=== PATIENT | female | born 1990 | race Caucasian/White ===

== ENCOUNTER 2017-02-09 12:00 | Emergency (ER) | payer SELFPAY ==
[~2017-02-09] VITALS: Ht 160 cm; Wt 44.0 kg
[~2017-02-09 12:00] MED LIST: HYDR-971 PO; IBUP400T PO; ONDA4TAB10 PO
[2017-02-09] MEDS ORDERED: IV NORMAL SALINE 1,000ML 1,000 ML IV SCH ×2 (12:23→16:00)
[2017-02-09] MEDS ORDERED: PROMETHAZINE 25 MG/ML VIAL IV ONE (12:36)
[2017-02-09] MEDS ORDERED: IV NORMAL SALINE 50ML 50 ML ONE (12:37)
[2017-02-09] MEDS: FENTANYL PF 100 MCG/2 ML VIAL. IV PRN ×3 (12:45→15:35)
[2017-02-09 12:58] LABS: BASO % 0 % (0-3); EOS % 0 % (0-3); HEMATOCRIT 40.9 % (36.0-47.0); HEMOGLOBIN 13.4 g/dL (12.0-15.5); LYMPH # 1.6 x10^3/uL (1.0-4.8); LYMPH % 12 % (24-48); MEAN CORPUSCULAR HEMOGLOBIN 27 pg (25-35); MEAN CORPUSCULAR HGB CONC 33 g/dL (31-37); MEAN CORPUSCULAR VOLUME 83 fL (79-100); MONO # 0.6 x10^3/uL (0.0-1.1); MONO % 4 % (0-9); NEUT # 11.1 x10^3uL (1.8-7.7); NEUT % 83 % (31-73); PLATELET COUNT 382 x10^3/uL (140-400); RED BLOOD COUNT 4.93 x10^6/uL (3.50-5.40); RED CELL DISTRIBUTION WIDTH 14.6 % (11.5-14.5); WHITE BLOOD COUNT 13.3 x10^3/uL (4.0-11.0)
[2017-02-09] MEDS ORDERED: LIDO:MAALOX 1:1 20 ML SINGLE DOSE PO ONE (13:00)
[2017-02-09] MEDS ORDERED: ONDANSETRON PF 4 MG/2 ML VIAL. IV ONE (13:00)
[2017-02-09] MEDS ORDERED: FAMOTIDINE 20 MG/2 ML VIAL IVP ONE (13:00)
[2017-02-09] MEDS ORDERED: PROMETHAZINE 25 MG in IV NORMAL SALINE 50ML 50 ML IV PRN (13:00)
[2017-02-09 13:04] LABS: PREG TEST PT QUAL NEGATIVE (NEG)
[2017-02-09 13:05] LABS: ALBUMIN 4.8 g/dL (3.4-5.0); ALBUMIN/GLOBULIN RATIO 1.3 (1.0-1.7); CALCIUM 9.8 mg/dL (8.5-10.1); CREATININE 0.9 mg/dL (0.6-1.0); GFR 76.3; POTASSIUM 3.6 mmol/L (3.5-5.1); TOTAL PROTEIN 8.6 g/dL (6.4-8.2)
[2017-02-09] MEDS ORDERED: IOHEXOL 300 MG/ML 75 ML VIAL. IV ONE (13:40)
--- NOTE | 2017-02-09 13:41 | RAD ---
Indication left lower quadrant pain since yesterday. Axial images through the abdomen and pelvis were obtained. 75 cc of Omnipaque 300 was administered intravenously. Note is made of a previous examination November 04, 2014. The lung bases are clear. There is a low-density mass in the left lobe of the liver. It is larger than on the previous exam. (Previously measuring approximately 1 mm in greatest dimension and now 5-6). In a 27-year-old without a significant health history this almost certainly reflects benign disease. Clinical correlation as to the likelihood of hepatic disease advised. The spleen appears unremarkable. The gallbladder is largely contracted but grossly normal. No pancreatic adrenal or renal anomalies are seen. An acute or definite significant finding in the abdomen is not seen. In the pelvis there are adnexal masses likely reflecting physiologic cysts associated with the ovaries. If clinically warranted additional evaluation could be obtained with ultrasound. Acute or definite significant finding is not seen. The large bowel is largely collapsed. Slight large bowel wall thickening not entirely excluded but the appearance is probably secondary to the contracted state. Mild colitis cannot entirely excluded IMPRESSION: No definite acute or significant finding in the abdomen or pelvis. Probable cyst in the left lobe of the liver. The mass is, however, larger than on the previous exam. Probable physiologic cysts associated with the ovaries. Large bowel is largely collapsed. See above discussion.
--- NOTE | 2017-02-09 13:45 | PHYS DOC ---
General Chief Complaint: NAUSEA/VOMITING/DIARRHEA Stated Complaint: N/V/D,ABD PAIN Time Seen by MD: 12:23 Source: patient Exam Limitations: no limitations Problems: History of Present Illness Initial Comments Pt is 27/F to ED c/o abdominal pain, n/v/d. Pt states that she's had intermittent abdominal cramping, n/v/d since late last evening. No travel/bad food/known sick contacts, abdominal discomfort is generalized no blood noted. Pain is sharp/crampy, moderate/severe, no known exacerbating factors but relief typical after emesis or loose stool. No measured fever, no trauma or prearrival treatment. Denies , appetite preserved but fearful of PO intake due to n/v. 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 Requests evaluation here as she thinks today's sx may be related. Accompanied by SO. ED VS: 98.1, 66, 20, 141/76, 100% RA Timing/Duration: 24 hours, intermittent Severity: severe Modifying Factors: worse with eating Associated Symptoms: malaise, nausea/vomiting, weakness, other Allergies: Coded Allergies: No Known Allergies (Unverified Allergy, Unknown, 11/04/14) Past Medical History Medical History: no pertinent history Surgical History: noncontributory (CS) Social History Smoker: cigarettes Alcohol: occasionally Drugs: marijuana Review of Systems Constitutional: see HPI Respiratory: denies cough, denies shortness of breath Cardiovascular: denies chest pain, denies palpitations Gastrointestinal: see HPI Genitourinary: denies dysuria, denies frequency, denies hematuria Musculoskeletal: denies back pain, denies joint swelling, denies neck pain Psychiatric/Neurological: denies headache, denies numbness, denies paresthesia Physical Exam General Appearance: moderate distress, thin (small amt green emesis, dry heaves ) Eyes: bilateral eye EOMI, bilateral eye PERRL, bilateral eye normal inspection Ear, Nose, Throat: hearing grossly normal, normal ENT inspection (mucus membranes very dry), normal pharynx Neck: non-tender, supple Respiratory: normal breath sounds, no respiratory distress Cardiovascular: normal peripheral pulses, regular rate, rhythm Gastrointestinal: soft (ND, BS normal, diffuse TTP no focality, neg mcburney/ sanchez no masses or organomegaly noted) Rectal: deferred Back: no CVA tenderness, no vertebral tenderness Extremities: non-tender, normal inspection Neurologic/Psychiatric: supervisor photocomposition II-XII nml as tested, no motor/sensory deficits, alert, normal mood/affect, oriented x 3 Skin: pallor (poor turgor) Orders, Labs, Meds PATIENT: VALENCIA PRIETO ACCOUNT: [id number] : 1990 LOCATION: ER AGE: 27 SEX: F EXAM STATUS: PRE ER ORD. PHYSICIAN: MYNOR BENÍTEZ DO REASON: LLQ/adnexal pain, n/v/d PROCEDURE: CT ABD PELV W/ IV CONTRST ONLY Indication left lower quadrant pain since yesterday. Axial images through the abdomen and pelvis were obtained. 75 cc of Omnipaque 300 was administered intravenously. Note is made of a previous examination November 04, 2014. The lung bases are clear. There is a low-density mass in the left lobe of the liver. It is larger than on the previous exam. (Previously measuring approximately 1 mm in greatest dimension and now 5-6). In a 27-year-old without a significant health history this almost certainly reflects benign disease. Clinical correlation as to the likelihood of hepatic disease advised. The spleen appears unremarkable. The gallbladder is largely contracted but grossly normal. No pancreatic adrenal or renal anomalies are seen. An acute or definite significant finding in the abdomen is not seen. In the pelvis there are adnexal masses likely reflecting physiologic cysts associated with the ovaries. If clinically warranted additional evaluation could be obtained with ultrasound. Acute or definite significant finding is not seen. The large bowel is largely collapsed. Slight large bowel wall thickening not entirely excluded but the appearance is probably secondary to the contracted state. Mild colitis cannot entirely excluded IMPRESSION: No definite acute or significant finding in the abdomen or pelvis. Probable cyst in the left lobe of the liver. The mass is, however, larger than on the previous exam. Probable physiologic cysts associated with the ovaries. Large bowel is largely collapsed. See above discussion. DICTATED AND SIGNED BY: YANELY CUNNINGHAM MD DATE: 02/09/17 1326 CC: ALEXI MAGANA MD; MYNOR BENÍTEZ DO ~ WBC 13.1, glu 145, HCG neg, UDS + cannabinoids. Pt with prolonged ED course in part due to ED volume, also due to CT delay and IV fluids. Pt had several episodes of emesis/retching thru ED course. She received 2+ L NS IV, fentanyl/pepcid/GI cocktail for discomfort with good control. Zofran initially for n/v, ultimately requiring phenergan/haldol. I discussed her symptoms, PE findings, and results obtained in ED. No evidence obstruction or other acute emergent condition, viral gastroenteritis most likely etiology although cannabinoid-induced cyclic vomitting syndrome also on differential. I discussed treatment options, pt will try symptomatic treatment at home initially. She expressed agreement/understanding of treatment plan. Pt advised to stop smoking. Departure Time of Disposition: 15:01 Disposition: 01 HOME, SELF-CARE Diagnosis: colitis, hypovolemia, hepatic cyst Patient Instructions: Colitis, Dehydration, Adult, Vesp-ps-Ieja, Smoking Cessation Additional Instructions: Stop smoking, seek medical assistance if necessary. Clear liquids today, advance to bland diet tomorrow as tolerated. Aggressive hydration with gatorade, water. Rx: cipro, zofran odt, dicyclomine, norco 5mg #20 Take medications with food. Follow up with your doctor next week for recheck and to schedule future imaging to monitor liver cyst. Return to ED with new or changing symptoms. MYNOR BENÍTEZ DO Feb 09, 2017 13:45
[2017-02-09 14:35] LABS: AMPHETAMINE/METHAMPHETAMINE NEG (NEG); BARBITURATES NEG (NEG); BENZODIAZEPINES NEG (NEG); CANNABINOIDS POS (NEG); COCAINE NEG (NEG); METHADONE NEG (NEG); OPIATES NEG (NEG); PHENCYCLIDINE NEG (NEG)
[2017-02-09 14:37] LABS: BACTERIA,URINE 0 /HPF (0-FEW); BILIRUBIN,URINE NEG (NEG); CLARITY,URINE CLEAR; COLOR,URINE YELLOW; GLUCOSE,URINE NEG (NEG); NITRITE,URINE NEG (NEG); RBC,URINE RARE /HPF (0-2); SQUAMOUS EPITHELIAL CELL,UR MOD /LPF; UROBILINOGEN,URINE 0.2 mg/dL (0.2 mg/dL); WBC,URINE RARE /HPF (0-4)
[2017-02-09] MEDS ORDERED: CIPR500T94 PO (15:08)
[2017-02-09] MEDS ORDERED: ONDA4TAB10 PO (15:08)
[2017-02-09] MEDS ORDERED: DICY20TA3 PO (15:08)
[2017-02-09] MEDS ORDERED: HYDR-971 PO (15:08)
[2017-02-09] MEDS ORDERED: HALOPERIDOL LACT 5 MG/ML VIAL. IVP ONE (15:30)
[2017-02-09] MEDS ORDERED: PROMETHAZINE IM 25 MG/ML VIAL IM ONE (15:30)
[2017-02-09 15:40] VITALS: BP 122/74
== END 2017-02-09 17:10 | disposition home or self-care (01) ==
LOC: ER 12:00
DX: K52.9 Noninfective gastroenteritis and colitis, unspecified (principal); E86.1 Hypovolemia; K76.89 Other specified diseases of liver; F17.210 Nicotine dependence, cigarettes, uncomplicated; F12.10 Cannabis abuse, uncomplicated
CPT/HCPCS: 36415; 74177; 80053; 80305; 80320; 81001; 83690; 84703; 85027; 96361; 96365; 96372; 96375; 96376; 99285; J1630; J2405; J2550; J3010; Q9967; S0028; G0480; G0481; J7030

== ENCOUNTER 2017-02-26 15:38 | Emergency (ER) | payer SELFPAY ==
[~2017-02-26] VITALS: Ht 160 cm; Wt 45.8 kg
[~2017-02-26 15:38] MED LIST changes: +CIPR500T94 PO; +DICY20TA3 PO; -IBUP400T PO; +IBUP400T18 PO
[2017-02-26] MEDS ORDERED: IV NORMAL SALINE 1,000ML 1,000 ML IV ONE (16:30)
[2017-02-26] MEDS ORDERED: fentaNYL PF 100 MCG/2 ML VIAL IM ONE (16:30)
[2017-02-26] MEDS ORDERED: ONDANSETRON PF 4 MG/2 ML VIAL. IV ONE ×2 (16:30→20:15)
[2017-02-26 17:05] LABS: BASO % 0 % (0-3); EOS # 0.5 x10^3/uL (0.0-0.7); EOS % 6 % (0-3); HEMATOCRIT 40.8 % (36.0-47.0); HEMOGLOBIN 13.4 g/dL (12.0-15.5); LYMPH # 2.1 x10^3/uL (1.0-4.8); LYMPH % 25 % (24-48); MEAN CORPUSCULAR HEMOGLOBIN 27 pg (25-35); MEAN CORPUSCULAR HGB CONC 33 g/dL (31-37); MEAN CORPUSCULAR VOLUME 83 fL (79-100); MONO # 0.7 x10^3/uL (0.0-1.1); MONO % 9 % (0-9); NEUT # 5.2 x10^3uL (1.8-7.7); NEUT % 61 % (31-73); PLATELET COUNT 295 x10^3/uL (140-400); RED CELL DISTRIBUTION WIDTH 15.1 % (11.5-14.5); WHITE BLOOD COUNT 8.6 x10^3/uL (4.0-11.0)
[2017-02-26] MEDS ORDERED: IOHEXOL 300 MG/ML 75 ML VIAL. IV ONE (17:10)
[2017-02-26 17:19] LABS: ALBUMIN 4.2 g/dL (3.4-5.0); ALBUMIN/GLOBULIN RATIO 1.1 (1.0-1.7); CALCIUM 9.6 mg/dL (8.5-10.1); CREATININE 0.8 mg/dL (0.6-1.0); GFR 87.4; POTASSIUM 3.6 mmol/L (3.5-5.1); TOTAL BILIRUBIN 0.5 mg/dL (0.2-1.0); TOTAL PROTEIN 8.2 g/dL (6.4-8.2)
--- NOTE | 2017-02-26 17:54 | RAD ---
PROCEDURE CT abdomen and pelvis with contrast HISTORY Vomiting, abdominal pain, pelvic pain, fever, diarrhea TECHNIQUE Exposure: One or more of the following individualized dose reduction techniques were utilized for this exam: 1. Automated exposure control. 2. Adjustment of the mA and/or kV according to patient size. 3. Use of iterative reconstruction technique. Helical CT imaging abdomen and pelvis with 75 milliliters Omnipaque [address] abdomen and pelvis February 09, 2017 FINDINGS Abdomen: Nonspecific 5 millimeter hypodense lesion segment for the liver is stable. There is mild dilation of the extrahepatic bile ducts and central intrahepatic bile ducts a change from the prior study. Gallbladder is also mildly distended the could be a thin slip of fluid or edema at the gallbladder fossa. Pancreas, spleen, adrenals and kidneys are unremarkable. Collapse of the small bowel and ascending and transverse colon no discrete obstruction or inflammatory change. The appendix is negative. No abdominal fluid or adenopathy. Lung bases and bones are unremarkable. Pelvis: Mild dependent pelvic free fluid. Subcentimeter hypodensities of the ovaries likely follicles. Uterus, bladder, rectum and bones are unremarkable. IMPRESSION 1. Mild dilation of the bile ducts. Mild distention of the gallbladder and a thin slip of fluid or edema at the gallbladder fossa. These findings are new from prior imaging and could be indicative choledocholithiasis or cholecystitis. 2. The appendix is negative. 3. Mild dependent pelvic free fluid. Electronically signed by: Ji Nolen MD (February 26, 2017 17:53:09)
--- NOTE | 2017-02-26 18:27 | ED.ADGEN ---
Past History Past Medical History: No Pertinent History Past Surgical History: No Surgical History, Alcohol Use: Occasionally Drug Use: Marijuana Adult General Chief Complaint Chief Complaint abdominal pain with severe vomiting since AM, +BM but no diarrhea, +F/C HPI HPI Patient is a 27 year old F who presents with abdominal pain, and vomiting since this AM, Had [employer]son last night. Pt admits to problems at times with constipation but has had 3 BM in ER no diarrhea. Pt states she has had abdominal pain problems on and off sometimes related to food +F/C no chest pain, mild cough, no blood in vomit, no blood in stool, no dysuria Review of Systems Review of Systems Constitutional: + fever or chills Eyes: Denies change in visual acuity, redness, or eye pain HENT: Denies nasal congestion or sore throat [] Respiratory: shortness of breath + cough no sputum Cardiovascular: No additional information not addressed in HPI GI: abdominal pain, N/V : Denies dysuria or hematuria Musculoskeletal: Denies back pain or joint pain Integument: Denies rash or skin lesions Neurologic: Denies headache, focal weakness or sensory changes Current Medications Current Medications Current Medications Medications (Trade) Dose Ordered Sig/Alon Start Time Stop Time Status Last Admin Dose Admin Fentanyl Citrate (Fentanyl 2ml Vial) 50 mcg 1X ONCE 02/26/17 16:30 02/26/17 16:31 DC 02/26/17 16:30 50 MCG Iohexol (Omnipaque 300 Mg/ml) 75 ml 1X ONCE 02/26/17 17:10 02/26/17 17:11 DC Ondansetron HCl (Zofran) 4 mg 1X ONCE 02/26/17 16:30 02/26/17 16:31 DC 02/26/17 16:39 4 MG Sodium Chloride 1,000 ml @ 1,000 mls/hr 1X ONCE 02/26/17 16:30 02/26/17 17:29 DC 02/26/17 16:38 1,000 MLS/HR Allergies Allergies Allergies Coded Allergies Type Severity Reaction Last Updated Verified No Known Allergies Allergy Unknown 02/26/17 No Physical Exam Physical Exam Constitutional: Well developed, actively vomiting HENT: Normocephalic, atraumatic, bilateral external ears normal, oropharynx moist, no oral exudates, nose normal. [] Eyes: PERRLA, EOMI, conjunctiva normal, no discharge. [] Neck: Normal range of motion, no tenderness, supple, no stridor. [] Cardiovascular:Heart rate regular rhythm, no murmur [] Lungs & Thorax: Bilateral breath sounds clear to auscultation [] Abdomen: hypoactive BS soft, mod/severe RUQ tenderness, voluntary guarding, no rebound Skin: Warm, dry, no erythema, no rash. Back: No tenderness, no CVA tenderness. [] Extremities: No tenderness, no cyanosis, no clubbing, ROM intact, no edema. [] Neurologic: Alert and oriented X 3, normal motor function, normal sensory function, no focal deficits noted. [] Psychologic: Affect normal, judgement normal, mood normal. [] Current Patient Data Vital Signs Vital Signs Date Time Temp Pulse Resp B/P (MAP) Pulse Ox O2 Delivery O2 Flow Rate FiO2 02/26/17 15:40 98.1 87 22 95 Room Air Lab Results Laboratory Tests Test 02/26/17 16:45 White Blood Count 8.6 x10^3/uL (4.0-11.0) Red Blood Count 4.90 x10^6/uL (3.50-5.40) Hemoglobin 13.4 g/dL (12.0-15.5) Hematocrit 40.8 % (36.0-47.0) Mean Corpuscular Volume 83 fL (79-100) Mean Corpuscular Hemoglobin 27 pg (25-35) Mean Corpuscular Hemoglobin Concent 33 g/dL (31-37) Red Cell Distribution Width 15.1 % (11.5-14.5) H Platelet Count 295 x10^3/uL (140-400) Neutrophils (%) (Auto) 61 % (31-73) Lymphocytes (%) (Auto) 25 % (24-48) Monocytes (%) (Auto) 9 % (0-9) Eosinophils (%) (Auto) 6 % (0-3) H Basophils (%) (Auto) 0 % (0-3) Neutrophils # (Auto) 5.2 x10^3uL (1.8-7.7) Lymphocytes # (Auto) 2.1 x10^3/uL (1.0-4.8) Monocytes # (Auto) 0.7 x10^3/uL (0.0-1.1) Eosinophils # (Auto) 0.5 x10^3/uL (0.0-0.7) Basophils # (Auto) 0.0 x10^3/uL (0.0-0.2) Maternal Serum HCG Beta Subunit < 1 mIU/mL (0-6) Sodium Level 140 mmol/L (136-145) Potassium Level 3.6 mmol/L (3.5-5.1) Chloride Level 103 mmol/L (98-107) Carbon Dioxide Level 26 mmol/L (21-32) Anion Gap 11 (6-14) Blood Urea Nitrogen 7 mg/dL (7-20) Creatinine 0.8 mg/dL (0.6-1.0) Estimated GFR (Cockcroft-Gault) 87.4 BUN/Creatinine Ratio 9 (6-20) Glucose Level 119 mg/dL (70-99) H Calcium Level 9.6 mg/dL (8.5-10.1) Total Bilirubin 0.5 mg/dL (0.2-1.0) Aspartate Amino Transferase (AST) 27 U/L (15-37) Alanine Aminotransferase (ALT) 26 U/L (14-59) Alkaline Phosphatase 68 U/L (46-116) Total Protein 8.2 g/dL (6.4-8.2) Albumin 4.2 g/dL (3.4-5.0) Albumin/Globulin Ratio 1.1 (1.0-1.7) Lipase 82 U/L (73-393) EKG EKG [] Radiology/Procedures Radiology/Procedures [ [place] [address] IMAGING REPORT Signed PATIENT: VALENCIA PRIETO ACCOUNT: [id number] : 1990 LOCATION: ER AGE: 27 SEX: F EXAM STATUS: REG ER ORD. PHYSICIAN: MARAL BOSWELL MD REASON: abdominal pain PROCEDURE: CT ABD PELV W/ IV CONTRST ONLY PROCEDURE CT abdomen and pelvis with contrast HISTORY Vomiting, abdominal pain, pelvic pain, fever, diarrhea TECHNIQUE Exposure: One or more of the following individualized dose reduction techniques were utilized for this exam: 1. Automated exposure control. 2. Adjustment of the mA and/or kV according to patient size. 3. Use of iterative reconstruction technique. Helical CT imaging abdomen and pelvis with 75 milliliters Omnipaque [address] abdomen and pelvis February 09, 2017 FINDINGS Abdomen: Nonspecific 5 millimeter hypodense lesion segment for the liver is stable. There is mild dilation of the extrahepatic bile ducts and central intrahepatic bile ducts a change from the prior study. Gallbladder is also mildly distended the could be a thin slip of fluid or edema at the gallbladder fossa. Pancreas, spleen, adrenals and kidneys are unremarkable. Collapse of the small bowel and ascending and transverse colon no discrete obstruction or inflammatory change. The appendix is negative. No abdominal fluid or adenopathy. Lung bases and bones are unremarkable. Pelvis: Mild dependent pelvic free fluid. Subcentimeter hypodensities of the ovaries likely follicles. Uterus, bladder, rectum and bones are unremarkable. IMPRESSION 1. Mild dilation of the bile ducts. Mild distention of the gallbladder and a thin slip of fluid or edema at the gallbladder fossa. These findings are new from prior imaging and could be indicative choledocholithiasis or cholecystitis. 2. The appendix is negative. 3. Mild dependent pelvic free fluid. Electronically signed by: Debra Nolen MD (February 26, 2017 17:53:09) DICTATED AND SIGNED BY: DEBRA NOLEN MD DATE: 02/26/17 1757 CC: ALEXI MAGANA MD; MARAL BOSWELL MD ~ ] Course & Med Decision Making Course & Med Decision Making Pertinent Labs and Imaging studies reviewed. (See chart for details) Pt less vomiting and feel better but on reassessment Increased pain. Abdomen +BS soft severe RUQ tenderness Will admit for pain control and IV hydration Called Dr. Queen surgeon and aware Called Dr. Paul internal medicine to admit Final Impression Final Impression Abdominal Pain Possible Cholecystitis [] Problems: Dragon Disclaimer Dragon Disclaimer This electronic medical record was generated, in whole or in part, using a voice recognition dictation system. MARAL BOSWELL MD February 26, 2017 18:27
--- NOTE | 2017-02-26 18:59 | ACF ---
Admission Criteria Forms ABDOMINAL PAIN Clinical Indications for Admission to Inpatient Care (Place 'X' for any and all applicable criteria): Admission is indicated for ANY ONE of the following(1)(2)(3)(4)(5): [X]I. Inpatient admission required rather than observation care (Also use Abdominal Pain: Observation Care, as appropriate) because of ANY ONE of the following: [ ]a) Severe pain requiring acute inpatient management [X]b) Identification of etiology/finding that requires inpatient care (eg, aortic dissection, free air) [ ]c) Absent bowel sounds with complete ileus(6) [ ]d) Suspected toxic megacolon [ ]e) Severe electrolyte abnormalities requiring inpatient care [ ]f) High fever or infection requiring inpatient admission as indicated by ANY ONE of following(7)(8): [ ] i) Appropriate outpatient or observational care antimicrobial treatment unavailable, not effective, or not feasible [ ] ii) Documented bacteremia [ ] iii) Temperature > 104.9 degrees F (oral) [ ] iv) T >103.1 F (oral) or < 96.8 F(rectal) that does not respond to all emergency treatment measures [ ]g) Signs of intestinal obstruction [B] [ ]h) Hemodynamic instability [ ]i) IV fluid to replace significant ongoing losses (greater than 3 L/m2 per day) (12)(13) [ ]j) Percutaneous or open drainage (eg, abscess, biliary tract ) procedures [ ]k) Parenteral nutrition regimen that must be implemented on inpatient basis [ ]l) Other condition,treatment or monitoring requiring inpatient admission. [ ]II. Peritoneal signs present [ ]III. Surgery needed that cannot be performed on an ambulatory basis. [ ]IV. Evaluation requires patient to not eat or drink for extended period ( eg, more than 24 hours). [ ]V. Contraindications and/or Inappropriate clinical situations for Observational Care in patients with abdominal pain, when ANY ONE of the following is required: [ ]a) Thorough evaluation is required to prevent catastrophic events due to delays in diagnosing (e.g.Mesenteric ischemia) 1,3 [ ]b) Patient with severe pathology or with chronic symptoms unlikely to improve in the ED stay (3) [ ]. General contraindications and/or Inappropriate clinical situations for Observational Care in patients with abdominal pain, when ANY ONE of the following is required: [ ]a) Prediction of prolongation of LOS based on ANY ONE of the following may be considered as a contraindication for observational care 2, 3, 4, 5, 6, 7, 8, 9, 10, 11 [ ]i) Age > 65 yrs. [ ]ii) Patient arriving by ambulance [ ]iii) Patient with high acuity [ ]iv) Patient requiring vital sign monitoring [ ]v) Patient on IV medication [ ]b) Systolic blood pressures 180mmHg 3,12 [ ]c) Patient with altered mental status including delirium and other alteration of consciousness, (3) [ ]d) Patient whose discharge disposition will be to a fdc home or rehabilitation home should not be managed in Emergency Department Observation Unit. CMS rule requires 3 days hospital stay before such placement.3,13 [ ]e) Patient with failure to thrive due to broad array of etiologies 3,16,17 [ ]f) Inability to ambulate 3,14 Extended stay beyond goal length of stay may be needed for(2)(3): [ ]a) Persistent abdominal pain with suspected intra-abdominal process [ ]b) Diagnosed condition requiring continued stay (e.g., pancreatitis, complicated diverticulitis) [ ]c) Surgery (e.g., colectomy) The original [facility] content created by [employer] has been revised. The portions of the content which have been revised are identified through the use of italic text or in bold, and [facility] has neither reviewed nor approved the modified material.All other unmodified content is copyright [facility]. Please see references footnoted in the original [facility] edition 2016 Admission Criteria Met?: Yes TAMRA ESCOBEDO February 26, 2017 18:59
[2017-02-26] MEDS ORDERED: fentaNYL PF 100 MCG/2 ML VIAL IV ONE (20:15)
[2017-02-26 21:20] VITALS: BP 121/74
== END 2017-02-26 21:30 | disposition short-term general hospital (02) ==
LOC: ER 15:38
DX: R10.11 Right upper quadrant pain (principal); R11.10 Vomiting, unspecified; R50.9 Fever, unspecified; F12.10 Cannabis abuse, uncomplicated
CPT/HCPCS: 36415; 74177; 80053; 83690; 84702; 85027; 96361; 96372; 96374; 96375; 96376; 99285; J2405; J3010; J7030

== ENCOUNTER 2017-07-31 19:56 | Emergency (ER) | payer SELFPAY ==
[~2017-07-31] VITALS: Ht 160 cm; Wt 41.8 kg
[2017-07-31 20:40] LABS: BASO % 0 % (0-3); EOS # 0.3 x10^3/uL (0.0-0.7); EOS % 2 % (0-3); HEMATOCRIT 37.7 % (36.0-47.0); HEMOGLOBIN 12.8 g/dL (12.0-15.5); LYMPH # 2.4 x10^3/uL (1.0-4.8); LYMPH % 16 % (24-48); MEAN CORPUSCULAR HEMOGLOBIN 29 pg (25-35); MEAN CORPUSCULAR HGB CONC 34 g/dL (31-37); MEAN CORPUSCULAR VOLUME 85 fL (79-100); MONO # 1.2 x10^3/uL (0.0-1.1); MONO % 7 % (0-9); NEUT # 11.7 x10^3uL (1.8-7.7); NEUT % 75 % (31-73); PLATELET COUNT 371 x10^3/uL (140-400); RED BLOOD COUNT 4.44 x10^6/uL (3.50-5.40); RED CELL DISTRIBUTION WIDTH 14.7 % (11.5-14.5); WHITE BLOOD COUNT 15.6 x10^3/uL (4.0-11.0)
[2017-07-31] MEDS ORDERED: ONDANSETRON PF 4 MG/2 ML VIAL. ONE (20:40)
[2017-07-31 20:43] LABS: CALCIUM 8.6 mg/dL (8.5-10.1); CREATININE 0.5 mg/dL (0.6-1.0); GFR 150.3; POTASSIUM 3.5 mmol/L (3.5-5.1)
[2017-07-31] MEDS ORDERED: IV NORMAL SALINE 1,000ML 1,000 ML IV ONE ×2 (20:45→22:15)
[2017-07-31] MEDS ORDERED: ONDANSETRON PF 4 MG/2 ML VIAL. IV ONE (20:45)
[2017-07-31 20:49] LABS: AMORPHOUS SEDIMENT,UR PRESENT /HPF; BACTERIA,URINE 0 /HPF (0-FEW); BILIRUBIN,URINE NEG (NEG); CLARITY,URINE CLOUDY; COLOR,URINE YELLOW; GLUCOSE,URINE NEG (NEG); NITRITE,URINE NEG (NEG); RBC,URINE RARE /HPF (0-2); SQUAMOUS EPITHELIAL CELL,UR OCC /LPF; UROBILINOGEN,URINE 0.2 mg/dL (0.2 mg/dL); WBC,URINE OCC /HPF (0-4)
[2017-07-31] MEDS ORDERED: cefTRIAXone SODIUM 1 GM VIAL IV ONE (21:01)
[2017-07-31] MEDS ORDERED: IV NORMAL SALINE 50ML 50 ML ONE (21:01)
[2017-07-31 21:42] VITALS: BP 128/63
[2017-07-31] MEDS ORDERED: ONDA4TAB7 PO (21:42)
[2017-07-31] MEDS ORDERED: RANI150T6 PO (21:42)
[2017-07-31] MEDS ORDERED: HYDROcodone/APAP 7.5/325MG 1 TAB TABLET PO ONE (21:45)
[2017-07-31 22:25] LABS: % EOS 2 % (0-5); % LYMPHS 14 % (24-48); % MONOS 9 % (0-10); % SEGS 75 % (35-66)
[2017-07-31 22:26] LABS: PLT ESTIMATE INCREASED (ADEQUATE); STOMATOCYTES OCC; TARGET CELLS OCC
--- NOTE | 2017-07-31 22:54 | PHYS DOC ---
Past History Past Medical History: Other Past Surgical History: Alcohol Use: Occasionally Drug Use: Marijuana Adult General Chief Complaint Chief Complaint: ABDOMINAL PAIN IN HPI HPI Patient is a 27 year old F who presents with urinary frequency, urgency and left -sided abdominal pain over the past 3 days. She feels that her symptoms have been constant with fluctuating intensity, as well as gradually worsening over the past 3 days. She feels that her symptoms are associated with fever sweats and chills. She had a fever of 100.6 tonight before coming to the emergency room which was treated with Tylenol before arrival. She is and considered high risk due to 2 previous C-sections and blood type of Rh-. Review of Systems Review of Systems Constitutional: Negative except history of present illness Eyes: Denies change in visual acuity, redness, or eye pain [] HENT: Denies nasal congestion or sore throat [] Respiratory: Denies cough or shortness of breath [] Cardiovascular: No additional information not addressed in HPI [] GI: Other than history of present illness she states that she has been constipated and had mild nausea. : Negative except history of present illness Musculoskeletal: Negative except history of present illness Integument: Denies rash or skin lesions [] Neurologic: Denies headache, focal weakness or sensory changes [] Endocrine: Denies polyuria or polydipsia [] Family History Family History Noncontributory Current Medications Current Medications Current Medications Medications (Trade) Dose Ordered Sig/Alon Start Time Stop Time Status Last Admin Dose Admin Acetaminophen/ Hydrocodone Bitart (Lortab 7.5/325) 1 tab 1X ONCE 07/31/17 21:45 07/31/17 21:46 DC 07/31/17 21:44 1 TAB Ceftriaxone Sodium 1 gm/ Sodium Chloride 50 ml @ 100 mls/hr 1X ONCE 07/31/17 21:00 07/31/17 21:29 DC 07/31/17 21:00 100 MLS/HR Ceftriaxone Sodium (Rocephin) 1 gm STK-MED ONCE 07/31/17 21:01 07/31/17 21:02 DC Ondansetron HCl (Zofran) 4 mg STK-MED ONCE 07/31/17 20:40 07/31/17 20:41 DC Sodium Chloride 1,000 ml @ 125 mls/hr 1X ONCE 07/31/17 22:15 08/01/17 06:14 07/31/17 22:08 125 MLS/HR Allergies Allergies Allergies Coded Allergies Type Severity Reaction Last Updated Verified No Known Allergies Allergy Unknown 02/26/17 No Physical Exam Physical Exam Constitutional: Well developed, well nourished, mild distress HENT: Normocephalic, atraumatic, Eyes: EOMI, conjunctiva normal, no discharge. [] Neck: Normal range of motion, no tenderness, supple, no stridor. [] Cardiovascular:Heart rate regular rhythm, no murmur [] Lungs & Thorax: Bilateral breath sounds clear to auscultation [] Abdomen: Mild to moderate left-sided tenderness with left-sided flank pain noted. Generalized pain is also noted Skin: Warm, dry, no erythema, no rash. [] Back: No tenderness, no CVA tenderness. [] Extremities: No tenderness, no cyanosis, no clubbing, ROM intact, no edema. [] Neurologic: Alert and oriented X 3, normal motor function, normal sensory function, no focal deficits noted. [] Psychologic: Affect normal, judgement normal, mood normal. [] Current Patient Data Vital Signs Vital Signs Date Time Temp Pulse Resp B/P (MAP) Pulse Ox O2 Delivery O2 Flow Rate FiO2 07/31/17 19:56 98.9 89 18 100 Room Air Lab Results Laboratory Tests Test 07/31/17 20:12 White Blood Count 15.6 x10^3/uL (4.0-11.0) H Red Blood Count 4.44 x10^6/uL (3.50-5.40) Hemoglobin 12.8 g/dL (12.0-15.5) Hematocrit 37.7 % (36.0-47.0) Mean Corpuscular Volume 85 fL (79-100) Mean Corpuscular Hemoglobin 29 pg (25-35) Mean Corpuscular Hemoglobin Concent 34 g/dL (31-37) Red Cell Distribution Width 14.7 % (11.5-14.5) H Platelet Count 371 x10^3/uL (140-400) Neutrophils (%) (Auto) 75 % (31-73) H Lymphocytes (%) (Auto) 16 % (24-48) L Monocytes (%) (Auto) 7 % (0-9) Eosinophils (%) (Auto) 2 % (0-3) Basophils (%) (Auto) 0 % (0-3) Neutrophils # (Auto) 11.7 x10^3uL (1.8-7.7) H Lymphocytes # (Auto) 2.4 x10^3/uL (1.0-4.8) Monocytes # (Auto) 1.2 x10^3/uL (0.0-1.1) H Eosinophils # (Auto) 0.3 x10^3/uL (0.0-0.7) Basophils # (Auto) 0.0 x10^3/uL (0.0-0.2) Segmented Neutrophils % 75 % (35-66) H Lymphocytes % 14 % (24-48) L Monocytes % 9 % (0-10) Eosinophils % 2 % (0-5) Platelet Estimate Increased (ADEQUATE) Target Cells Occ Stomatocytes Occ Urine Collection Type Unknown Urine Color Yellow Urine Clarity Cloudy Urine pH 8.0 Urine Specific [place] 1.015 Urine Protein Neg (NEG-TRACE) Urine Glucose (UA) Neg mg/dL (NEG) Urine Ketones (Stick) Trace mg/dL (NEG) Urine Blood Trace (NEG) Urine Nitrite Neg (NEG) Urine Bilirubin Neg (NEG) Urine Urobilinogen Dipstick 0.2 mg/dL (0.2 mg/dL) Urine Leukocyte Esterase Neg (NEG) Urine RBC Rare /HPF (0-2) Urine WBC Occ /HPF (0-4) Urine Squamous Epithelial Cells Occ /LPF Urine Transitional Epithelial Cells Occ /LPF Urine Amorphous Sediment Present /HPF Urine Bacteria 0 /HPF (0-FEW) Sodium Level 135 mmol/L (136-145) L Potassium Level 3.5 mmol/L (3.5-5.1) Chloride Level 100 mmol/L (98-107) Carbon Dioxide Level 26 mmol/L (21-32) Anion Gap 9 (6-14) Blood Urea Nitrogen 7 mg/dL (7-20) Creatinine 0.5 mg/dL (0.6-1.0) L Estimated GFR (Cockcroft-Gault) 150.3 Glucose Level 93 mg/dL (70-99) Calcium Level 8.6 mg/dL (8.5-10.1) EKG EKG [] Radiology/Procedures Radiology/Procedures [] Course & Med Decision Making Course & Med Decision Making Pertinent Labs and Imaging studies reviewed. (See chart for details) SYSTEMS SUPPORT SPECIALIST from [facility] was contacted by phone for recommendations. Transfer for admission was recommended. Aishwarya was started on IV Rocephin, IV fluids and blood cultures were drawn prior to starting antibiotics. She was transferred in stable condition via EMS Dragon Disclaimer Dragon Disclaimer This chart was dictated in whole or in part using Voice Recognition software in a busy, high-work load, and often noisy Emergency Department environment. It may contain unintended and wholly unrecognized errors or omissions. Departure Departure: Impression: Primary Impression: Pyelonephritis complicating Disposition: XFER OTHER Condition: STABLE Referrals: ALEXI MAGANA MD (PCP) Problem Qualifiers Primary Impression: Pyelonephritis complicating Trimester: unspecified trimester Qualified Codes: O23.00 - Infections of kidney in , unspecified trimester ALEXI VALLADARES MD Jul 31, 2017 22:54
== END 2017-07-31 22:27 | disposition short-term general hospital (02) ==
LOC: ER 19:56
DX: O23.00 Infections of kidney in pregnancy, unspecified trimester (principal); N12 Tubulo-interstitial nephritis, not specified as acute or chronic; Z3A.00 Weeks of gestation of pregnancy not specified; Z98.890 Other specified postprocedural states
CPT/HCPCS: 36415; 80048; 81001; 85007; 85025; 87040; 96365; 96375; 99285; J0696; J2405; J7030

== ENCOUNTER 2017-09-16 08:20 | Emergency (ER) | payer OTHER ==
[~2017-09-16] VITALS: Ht 157.5 cm; Wt 52.2 kg
[~2017-09-16 08:20] MED LIST changes: +ONDA4TAB7 PO; +RANI150T6 PO
[2017-09-16 08:27] VITALS: BP 109/53
[2017-09-16] MEDS ORDERED: ONDANSETRON PF 4 MG/2 ML VIAL. ONE (08:38)
[2017-09-16] MEDS ORDERED: ONDANSETRON PF 4 MG/2 ML VIAL. IV ONE (08:45)
[2017-09-16] MEDS ORDERED: IV NORMAL SALINE 1,000ML 1,000 ML IV ONE (08:45)
[2017-09-16 08:55] LABS: BASO % 0 % (0-3); EOS # 0.2 x10^3/uL (0.0-0.7); EOS % 1 % (0-3); HEMATOCRIT 35.2 % (36.0-47.0); HEMOGLOBIN 12.2 g/dL (12.0-15.5); LYMPH # 2.2 x10^3/uL (1.0-4.8); LYMPH % 14 % (24-48); MEAN CORPUSCULAR HEMOGLOBIN 29 pg (25-35); MEAN CORPUSCULAR HGB CONC 35 g/dL (31-37); MEAN CORPUSCULAR VOLUME 85 fL (79-100); MONO # 0.7 x10^3/uL (0.0-1.1); MONO % 4 % (0-9); NEUT # 12.9 x10^3uL (1.8-7.7); NEUT % 81 % (31-73); PLATELET COUNT 329 x10^3/uL (140-400); RED BLOOD COUNT 4.13 x10^6/uL (3.50-5.40); RED CELL DISTRIBUTION WIDTH 13.8 % (11.5-14.5); WHITE BLOOD COUNT 16.1 x10^3/uL (4.0-11.0)
[2017-09-16] MEDS ORDERED: RINGERS LACTATED IV ONE (09:00)
[2017-09-16] MEDS ORDERED: IV RINGERS SOLUTION,LACTATED 1,000 ML IV ONE (09:00)
[2017-09-16 09:03] LABS: ALBUMIN 3.3 g/dL (3.4-5.0); ALBUMIN/GLOBULIN RATIO 0.8 (1.0-1.7); CALCIUM 8.5 mg/dL (8.5-10.1); CREATININE 0.6 mg/dL (0.6-1.0); GFR 121.8; POTASSIUM 3.6 mmol/L (3.5-5.1); TOTAL BILIRUBIN 0.5 mg/dL (0.2-1.0); TOTAL PROTEIN 7.3 g/dL (6.4-8.2)
[2017-09-16] MEDS ORDERED: FAMOTIDINE 20 MG/2 ML VIAL IVP ONE (09:15)
[2017-09-16] MEDS ORDERED: PROMETHAZINE 12.5 MG in IV NORMAL SALINE 50ML 50 ML IV ONE (09:15)
[2017-09-16] MEDS ORDERED: PROMETHAZINE 25 MG/ML VIAL IV ONE ×2 (09:23→11:18)
[2017-09-16] MEDS ORDERED: IV NORMAL SALINE 50ML 50 ML ONE ×2 (09:23→11:18)
[2017-09-16 09:29] LABS: % BANDS 2 % (0-9); % BASOS 0 % (0-3); % EOS 3 % (0-5); % LYMPHS 14 % (24-48); % MONOS 3 % (0-10); % SEGS 78 % (35-66); PLATELET CLUMP PRESENT; PLT ESTIMATE ADEQUATE (ADEQUATE)
--- NOTE | 2017-09-16 10:08 | ED.ADGEN ---
Past History Past Medical History: Anemia, Kidney Infection Past Surgical History: No Surgical History Alcohol Use: None Drug Use: None Adult General Chief Complaint Chief Complaint Nausea, vomiting diarrhea HPI HPI Patient is a 27-year-old G3, P2 approximately 20 week estimated gestation female who presents with vomiting and diarrhea for the past 2 days. He is recently been exposed to the stomach flu. Denies fever chills sweats. Reports poor oral tolerance with multiple episodes of vomiting including one on Ed arrival, cramping abdominal pain, and loose stools. No fevers chills or sweats. No flank pain or dysuria. Patient recently hospitalized at and released in the past 4 weeks for treatment of pyelonephritis. Patient states she is on antibiotics daily until the end of her . [] Review of Systems Review of Systems ROS as per HPI [] All other systems were reviewed and found to be within normal limits, except as documented in this note. Current Medications Current Medications Current Medications Medications (Trade) Dose Ordered Sig/Alon Start Time Stop Time Status Last Admin Dose Admin Famotidine (Pepcid Vial) 20 mg 1X ONCE 09/16/17 09:15 09/16/17 09:16 DC 09/16/17 09:31 20 MG Lactated Ringer's 1,000 ml @ 1,000 mls/hr 1X ONCE 09/16/17 09:00 09/16/17 09:59 DC 09/16/17 09:32 1,000 MLS/HR Ondansetron HCl (Zofran) 4 mg 1X ONCE 09/16/17 08:45 09/16/17 08:46 DC 09/16/17 08:43 4 MG Promethazine HCl 12.5 mg/Sodium Chloride 50.5 ml @ 101 mls/hr 1X STAT 09/16/17 11:14 09/16/17 11:43 DC 09/16/17 11:14 101 MLS/HR Sodium Chloride 1,000 ml @ 1,000 mls/hr 1X ONCE 09/16/17 08:45 09/16/17 09:44 DC Allergies Allergies Allergies Coded Allergies Type Severity Reaction Last Updated Verified No Known Allergies Allergy Unknown 02/26/17 No Physical Exam Physical Exam Constitutional: Well developed, well nourished, no acute distress, non-toxic appearance. [] HENT: Normocephalic, atraumatic, bilateral external ears normal, oropharynx moist, no oral exudates, nose normal. [] Eyes: PERRLA, EOMI, conjunctiva normal. [] Neck: Normal range of motion. [] Cardiovascular:Heart rate regular rhythm, no murmur [] Lungs & Thorax: Bilateral breath sounds clear to auscultation [] Abdomen: Bowel sounds normal, soft, gravid with uterus fundus around umbilicus, non-distended, increased bowel sounds, no localized TTP, no R/R/G. . [] Skin: Warm, dry, no erythema, no rash. [] Back: No tenderness, no CVA tenderness. [] Neurologic: Alert and oriented X 3, normal motor function, normal sensory function, no focal deficits noted. [] Psychologic: Affect normal, judgement normal, mood normal. [] Current Patient Data Vital Signs Vital Signs Date Time Temp Pulse Resp B/P (MAP) Pulse Ox O2 Delivery O2 Flow Rate FiO2 09/16/17 08:27 97.6 90 20 100 Room Air Lab Results Laboratory Tests Test 09/16/17 08:35 09/16/17 09:29 White Blood Count 16.1 x10^3/uL (4.0-11.0) H Red Blood Count 4.13 x10^6/uL (3.50-5.40) Hemoglobin 12.2 g/dL (12.0-15.5) Hematocrit 35.2 % (36.0-47.0) L Mean Corpuscular Volume 85 fL (79-100) Mean Corpuscular Hemoglobin 29 pg (25-35) Mean Corpuscular Hemoglobin Concent 35 g/dL (31-37) Red Cell Distribution Width 13.8 % (11.5-14.5) Platelet Count 329 x10^3/uL (140-400) Neutrophils (%) (Auto) 81 % (31-73) H Lymphocytes (%) (Auto) 14 % (24-48) L Monocytes (%) (Auto) 4 % (0-9) Eosinophils (%) (Auto) 1 % (0-3) Basophils (%) (Auto) 0 % (0-3) Neutrophils # (Auto) 12.9 x10^3uL (1.8-7.7) H Lymphocytes # (Auto) 2.2 x10^3/uL (1.0-4.8) Monocytes # (Auto) 0.7 x10^3/uL (0.0-1.1) Eosinophils # (Auto) 0.2 x10^3/uL (0.0-0.7) Basophils # (Auto) 0.0 x10^3/uL (0.0-0.2) Segmented Neutrophils % 78 % (35-66) H Band Neutrophils % 2 % (0-9) Lymphocytes % 14 % (24-48) L Monocytes % 3 % (0-10) Eosinophils % 3 % (0-5) Basophils % 0 % (0-3) Platelet Estimate Adequate (ADEQUATE) Platelet Clumps, EDTA Present Sodium Level 138 mmol/L (136-145) Potassium Level 3.6 mmol/L (3.5-5.1) Chloride Level 104 mmol/L (98-107) Carbon Dioxide Level 24 mmol/L (21-32) Anion Gap 10 (6-14) Blood Urea Nitrogen 6 mg/dL (7-20) L Creatinine 0.6 mg/dL (0.6-1.0) Estimated GFR (Cockcroft-Gault) 121.8 BUN/Creatinine Ratio 10 (6-20) Glucose Level 112 mg/dL (70-99) H Calcium Level 8.5 mg/dL (8.5-10.1) Total Bilirubin 0.5 mg/dL (0.2-1.0) Aspartate Amino Transferase (AST) 20 U/L (15-37) Alanine Aminotransferase (ALT) 18 U/L (14-59) Alkaline Phosphatase 61 U/L (46-116) Total Protein 7.3 g/dL (6.4-8.2) Albumin 3.3 g/dL (3.4-5.0) L Albumin/Globulin Ratio 0.8 (1.0-1.7) L Urine Collection Type Unknown Urine Color Yellow Urine Clarity Cloudy Urine pH 8.5 Urine Specific [place] 1.020 Urine Protein 30 mg/dl (NEG-TRACE) Urine Glucose (UA) Neg mg/dL (NEG) Urine Ketones (Stick) 15 mg/dL (NEG) Urine Blood Neg (NEG) Urine Nitrite Neg (NEG) Urine Bilirubin Neg (NEG) Urine Urobilinogen Dipstick 1 mg/dL (0.2 mg/dL) Urine Leukocyte Esterase Neg (NEG) Urine RBC 0 /HPF (0-2) Urine WBC Rare /HPF (0-4) Urine Squamous Epithelial Cells Mod /LPF Urine Amorphous Sediment Present /HPF Urine Bacteria Mod /HPF (0-FEW) Urine Mucus Mod /LPF EKG EKG [] Radiology/Procedures Radiology/Procedures [] Course & Med Decision Making Course & Med Decision Making Pertinent Labs and Imaging studies reviewed. (See chart for details) [Repeat fluid bolus antiemetic medications given with symptomatic improvement. Remains soft, minimally tender on repeat evaluation. Recommend clear liquids with progressive bland diet as tolerated, and close OB follow-up. Return precautions reviewed. ] Final Impression Final Impression [1. Nausea and vomiting 2. Second trimester ] Problems: Dragon Disclaimer Dragon Disclaimer This electronic medical record was generated, in whole or in part, using a voice recognition dictation system. RICKEY BOSWELL DO Sep 16, 2017 10:08
[2017-09-16 10:15] LABS: BILIRUBIN,URINE NEG (NEG); CLARITY,URINE CLOUDY; COLOR,URINE YELLOW; GLUCOSE,URINE NEG (NEG); NITRITE,URINE NEG (NEG); UROBILINOGEN,URINE 1 mg/dL (0.2 mg/dL)
[2017-09-16 10:16] LABS: AMORPHOUS SEDIMENT,UR PRESENT /HPF; BACTERIA,URINE MOD /HPF (0-FEW); RBC,URINE 0 /HPF (0-2); SQUAMOUS EPITHELIAL CELL,UR MOD /LPF; WBC,URINE RARE /HPF (0-4)
[2017-09-16] MEDS ORDERED: PROMETHAZINE 12.5 MG in IV NORMAL SALINE 50ML 50 ML IV STA (11:14)
== END 2017-09-16 12:52 | disposition home or self-care (01) ==
LOC: ER 08:20
DX: O21.9 Vomiting of pregnancy, unspecified (principal); O99.612 Diseases of the digestive system complicating pregnancy, second trimester; O99.012 Anemia complicating pregnancy, second trimester; R19.7 Diarrhea, unspecified; Z3A.20 20 weeks gestation of pregnancy
CPT/HCPCS: 36415; 80053; 81001; 85007; 85025; 87086; 96365; 96366; 96375; 99285; J2405; J2550; J7120; S0028; 99284-25

== ENCOUNTER 2017-11-18 15:56 | Emergency (ER) | payer OTHER ==
[~2017-11-18] VITALS: Ht 157.5 cm; Wt 41.8 kg
[2017-11-18] MEDS ORDERED: IV NORMAL SALINE 1,000ML 1,000 ML IV SCH (16:13)
[2017-11-18] MEDS ORDERED: 0.9 % SODIUM CHLORIDE 10 ML DISP.SYRIN. IV PRN (16:15)
[2017-11-18] MEDS ORDERED: ONDANSETRON PF 4 MG/2 ML VIAL. IV ONE (16:30)
[2017-11-18 16:50] LABS: BASO % 0 % (0-3); EOS % 0 % (0-3); HEMATOCRIT 34.3 % (36.0-47.0); HEMOGLOBIN 11.6 g/dL (12.0-15.5); LYMPH # 2.4 x10^3/uL (1.0-4.8); LYMPH % 9 % (24-48); MEAN CORPUSCULAR HEMOGLOBIN 28 pg (25-35); MEAN CORPUSCULAR HGB CONC 34 g/dL (31-37); MEAN CORPUSCULAR VOLUME 83 fL (79-100); MONO # 1.5 x10^3/uL (0.0-1.1); MONO % 6 % (0-9); NEUT # 23.9 x10^3uL (1.8-7.7); NEUT % 86 % (31-73); PLATELET COUNT 362 x10^3/uL (140-400); RED BLOOD COUNT 4.12 x10^6/uL (3.50-5.40); RED CELL DISTRIBUTION WIDTH 13.5 % (11.5-14.5); WHITE BLOOD COUNT 27.9 x10^3/uL (4.0-11.0)
[2017-11-18 17:00] LABS: ALBUMIN 3.3 g/dL (3.4-5.0); ALBUMIN/GLOBULIN RATIO 0.8 (1.0-1.7); CALCIUM 8.7 mg/dL (8.5-10.1); CREATININE 0.5 mg/dL (0.6-1.0); GFR 150.3; POTASSIUM 3.1 mmol/L (3.5-5.1); TOTAL BILIRUBIN 0.4 mg/dL (0.2-1.0); TOTAL PROTEIN 7.6 g/dL (6.4-8.2)
[2017-11-18 17:45] LABS: BACTERIA,URINE FEW /HPF (0-FEW); BILIRUBIN,URINE NEG (NEG); CLARITY,URINE HAZY; COLOR,URINE YELLOW; GLUCOSE,URINE NEG (NEG); NITRITE,URINE NEG (NEG); SQUAMOUS EPITHELIAL CELL,UR MOD /LPF; UROBILINOGEN,URINE 0.2 mg/dL (0.2 mg/dL)
[2017-11-18] MEDS ORDERED: METOCLOPRAMIDE HCL 10 MG/2 ML VIAL. ONE (17:45)
--- NOTE | 2017-11-18 17:53 | PHYS DOC ---
Past History Past Medical History: Anemia, Kidney Infection Additional Past Medical Histor: history of opiate abuse Past Surgical History: No Surgical History Alcohol Use: None Drug Use: None Adult General Chief Complaint Chief Complaint: VOMITING IN HPI HPI 27 -year-old female patient at 29 weeks of gestation with high-risk because of history of opiate abuse states she was started on Zoloft yesterday by her DIRECTOR OF IT OPERATIONS at [facility] cause of depression and anxiety and also took a half dose of 8 mg Suboxone that was belonged to her but she didn't take for a long time, last night and started to have more than 15 episodes of vomiting since then with decrease of urine output and generalized weakness. Patient complaining of abdominal contraction feeling pain without vaginal bleeding, fever and chills, constipation and diarrhea. Patient states she had nausea and vomiting previously after taking Zoloft. Patient states she didn't urinate since last night. Review of Systems Review of Systems Constitutional: Denies fever or chills [] Eyes: Denies change in visual acuity, redness, or eye pain [] HENT: Denies nasal congestion or sore throat [] Respiratory: Denies cough or shortness of breath [] Cardiovascular: No additional information not addressed in HPI [] GI: Reports abdominal pain, nausea, vomiting, denies bloody stools or diarrhea [ ] : Denies dysuria or hematuria [] Musculoskeletal: Denies back pain or joint pain [] Integument: Denies rash or skin lesions [] Neurologic: Denies headache, focal weakness or sensory changes [] Endocrine: Denies polyuria or polydipsia [] All other systems were reviewed and found to be within normal limits, except as documented in this note. Family History Family History Non-contributory Current Medications Current Medications Current Medications Medications (Trade) Dose Ordered Sig/Alon Start Time Stop Time Status Last Admin Dose Admin Ondansetron HCl (Zofran) 4 mg 1X ONCE 11/18/17 16:30 11/18/17 16:31 DC 11/18/17 16:35 4 MG Sodium Chloride (Normal Saline Flush) 10 ml QSHIFT PRN 11/18/17 16:15 See nursing for home medications Allergies Allergies Allergies Coded Allergies Type Severity Reaction Last Updated Verified No Known Allergies Allergy Unknown 02/26/17 No Physical Exam Physical Exam Constitutional: mild distress, non-toxic appearance, anxious. [] HENT: Normocephalic, atraumatic, bilateral external ears normal, oropharynx dry , no oral exudates, nose normal. [] Eyes: PERRLA, EOMI, conjunctiva normal, no discharge. [] Neck: Normal range of motion, no tenderness, supple, no stridor. [] Cardiovascular:Heart rate regular rhythm, no murmur [] Lungs & Thorax: Bilateral breath sounds clear to auscultation [] Abdomen: Bowel sounds normal, soft, no tenderness, no masses, no pulsatile masses, gravid abdomen, no contraction, heart rate 170. [] Skin: Warm, dry, no erythema, no rash. [] Back: Lt tenderness, Lt CVA tenderness. [] Extremities: No tenderness, no cyanosis, no clubbing, ROM intact, no edema. [] Neurologic: Alert and oriented X 3, normal motor function, normal sensory function, no focal deficits noted. [] Psychologic: Anxious Current Patient Data Lab Results Laboratory Tests Test 11/18/17 16:27 White Blood Count 27.9 x10^3/uL (4.0-11.0) H Red Blood Count 4.12 x10^6/uL (3.50-5.40) Hemoglobin 11.6 g/dL (12.0-15.5) L Hematocrit 34.3 % (36.0-47.0) L Mean Corpuscular Volume 83 fL (79-100) Mean Corpuscular Hemoglobin 28 pg (25-35) Mean Corpuscular Hemoglobin Concent 34 g/dL (31-37) Red Cell Distribution Width 13.5 % (11.5-14.5) Platelet Count 362 x10^3/uL (140-400) Neutrophils (%) (Auto) 86 % (31-73) H Lymphocytes (%) (Auto) 9 % (24-48) L Monocytes (%) (Auto) 6 % (0-9) Eosinophils (%) (Auto) 0 % (0-3) Basophils (%) (Auto) 0 % (0-3) Neutrophils # (Auto) 23.9 x10^3uL (1.8-7.7) H Lymphocytes # (Auto) 2.4 x10^3/uL (1.0-4.8) Monocytes # (Auto) 1.5 x10^3/uL (0.0-1.1) H Eosinophils # (Auto) 0.0 x10^3/uL (0.0-0.7) Basophils # (Auto) 0.0 x10^3/uL (0.0-0.2) Platelet Estimate Pending Sodium Level 139 mmol/L (136-145) Potassium Level 3.1 mmol/L (3.5-5.1) L Chloride Level 104 mmol/L (98-107) Carbon Dioxide Level 22 mmol/L (21-32) Anion Gap 13 (6-14) Blood Urea Nitrogen 8 mg/dL (7-20) Creatinine 0.5 mg/dL (0.6-1.0) L Estimated GFR (Cockcroft-Gault) 150.3 BUN/Creatinine Ratio 16 (6-20) Glucose Level 127 mg/dL (70-99) H Calcium Level 8.7 mg/dL (8.5-10.1) Total Bilirubin 0.4 mg/dL (0.2-1.0) Aspartate Amino Transferase (AST) 28 U/L (15-37) Alanine Aminotransferase (ALT) 22 U/L (14-59) Alkaline Phosphatase 104 U/L (46-116) Total Protein 7.6 g/dL (6.4-8.2) Albumin 3.3 g/dL (3.4-5.0) L Albumin/Globulin Ratio 0.8 (1.0-1.7) L EKG EKG [] Radiology/Procedures Radiology/Procedures Ultrasound shows viable fetus at 28 weeks 4 days. See formal report[] Impressions: 1. UTI 2. Suspect pyelonephritis Lt. 3.. Hypokalemia 4. Gravid 29 weeks- gravid 3 Term 2. (US 28.4d) 5. History of pyelonephritis 6. Leukocytosis 7. Dehydrated 8. Anemia 9. Nausea and vomiting-hyperemesis Course & Med Decision Making Course & Med Decision Making Pertinent Labs reviewed. (See chart for details) Evaluation of patient in ER showed 27-year-old female patient at 29 weeks of gestation with nausea and vomiting after taking Zoloft and subluxing. Patient had dry oral mucosa without abdominal contraction or tenderness. heart rate was 170. Patient had small urine output after IV fluid. Patient states she has history of chronic pyelonephritis and taking antibiotic currently. Patient vomited after IV fluid and Zofran and an addended of IV fluids and Reglan was ordered. Patient had white count of 27,000 and potassium of 3.1. OB ultrasound was requested. Patient care transferred to Dr. Royal at [facility]. Discussed presentation, testing and tx. plan with Dr. Croft- OB at . [place] pt. transfer to - to OB resident employee relations specialist for admission. [] Dragon Disclaimer Dragon Disclaimer This electronic medical record was generated, in whole or in part, using a voice recognition dictation system. Departure Departure: Referrals: PCP,NO (PCP) MADDI HOLLOWAY MD Nov 18, 2017 17:53 JORDI ROYAL MD Nov 18, 2017 20:01
[2017-11-18] MEDS ORDERED: IV NORMAL SALINE 1,000ML 1,000 ML IV ONE (18:00)
[2017-11-18] MEDS ORDERED: METOCLOPRAMIDE HCL 10 MG/2 ML VIAL. IV ONE (18:00)
[2017-11-18] MEDS ORDERED: cefTRIAXone IV Push 1 GM VIAL. IVP ONE (19:04)
[2017-11-18 19:23] LABS: % BANDS 1 % (0-9); % LYMPHS 9 % (24-48); % MONOS 9 % (0-10); % SEGS 80 % (35-66)
[2017-11-18 19:33] LABS: PLT ESTIMATE ADEQUATE (ADEQUATE)
[2017-11-18 19:50] LABS: % ATYL 1 % (0-0)
--- NOTE | 2017-11-18 19:50 | RAD ---
Limited obstetrical sonogram CLINICAL HISTORY: Nausea and vomiting. Patient is approximately 29 weeks gestational age and has a urinary tract infection. There is a single viable intrauterine fetus in cephalic presentation. The cervix is normal in length measuring approximately 5.3 cm. heart motion of 155 bpm was demonstrated. The placenta is located posteriorly and ends above the cervix. There is a normal amount of amniotic fluid for gestational age. BPD 7.2 cm, 29 weeks 0 days Head circumference 25.8 cm, 20 weeks 1 day Abdominal circumference 24.3 cm, 20 weeks 4 days Femur length 5.35 cm, 28 weeks 3 days. Head circumference to abdominal circumflex ratio 1.07. Estimated gestational age 20 weeks 4 days. ALEX by today's sonographic measurements February 06, 2018. The right ovary is normal in size and shows no cystic or solid mass. The left ovary is not visualized. A survey was not performed. The bladder is visualized. There is no hydrocephalus. IMPRESSION: Viable intrauterine of approximately 28 weeks 4 days gestational age. The cervix is normal in length. Normal amount of amniotic fluid. Electronically signed by: Batsheva Warner MD (11/18/2017 7:47 PM) [facility]
[2017-11-18] MEDS ORDERED: MORPHINE SULFATE 10 MG/ML SYRINGE. SQ ONE (20:00)
[2017-11-18] MEDS ORDERED: IV RINGERS SOLUTION,LACTATED 1,000 ML IV ONE ×2 (20:30→22:00)
[2017-11-18 21:30] VITALS: BP 122/72
[2017-11-18] MEDS ORDERED: MAGNESIUM HYDROXIDE 2,400 MG/30 ML ORAL.SUSP. PO ONE (21:45)
[2017-11-18] MEDS ORDERED: SUCRALFATE 1 GM TABLET. PO ONE (21:45)
== END 2017-11-18 21:45 | disposition short-term general hospital (02) ==
LOC: ER 15:56
DX: O23.43 Unspecified infection of urinary tract in pregnancy, third trimester (principal); O99.283 Endocrine, nutritional and metabolic diseases complicating pregnancy, third trimester; O99.323 Drug use complicating pregnancy, third trimester; O99.013 Anemia complicating pregnancy, third trimester; O21.0 Mild hyperemesis gravidarum; O99.343 Other mental disorders complicating pregnancy, third trimester; E86.0 Dehydration; E87.6 Hypokalemia; F41.9 Anxiety disorder, unspecified; F32.9 Major depressive disorder, single episode, unspecified; F11.10 Opioid abuse, uncomplicated; Z3A.29 29 weeks gestation of pregnancy
CPT/HCPCS: 36415; 76815; 80053; 81001; 85007; 85025; 87086; 96361; 96365; 96366; 96372; 96375; 99285; J0696; J2270; J2405; J2765; J7120; J7030

== ENCOUNTER 2018-03-18 22:09 | Emergency (ER) | payer OTHER ==
[~2018-03-18] VITALS: Ht 160 cm; Wt 52.2 kg
[~2018-03-18 22:09] MED LIST changes: +RANI150T21 PO; -RANI150T6 PO
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
[2018-03-18] MEDS ORDERED: MORPHINE SULFATE 10 MG/ML SYRINGE. SQ ONE (23:00)
[2018-03-18] MEDS ORDERED: PROPOFOL 20 ML IV ONE (23:45)
[2018-03-19 00:45] VITALS: BP 126/48
[2018-03-19] MEDS ORDERED: IV RINGERS SOLUTION,LACTATED 1,000 ML IV ONE (02:30)
[2018-03-19] MEDS ORDERED: HYDR1TAB12 PO (02:38)
--- NOTE | 2018-03-19 08:41 | RAD ---
Left wrist, 3 views, 03/18/2018: HISTORY: Injury, pain There is a fracture of the distal radius with moderate volar displacement and mild volar angulation of the major distal fracture fragment. The distal ulna and carpal bones appear intact. There is moderate diffuse soft tissue swelling. IMPRESSION: Acute, displaced, distal radial fracture. Electronically signed by: León Shipman MD (03/19/2018 8:38 AM) [facility]
--- NOTE | 2018-03-19 08:42 | RAD ---
Right knee with patella, 4 views, 03/18/2018: HISTORY: Pain, injury No acute fracture or dislocation is identified. No joint effusion is seen. IMPRESSION: No acute bony abnormality is detected. Electronically signed by: León Shipman MD (03/19/2018 8:39 AM) [facility]
--- NOTE | 2018-03-19 08:44 | RAD ---
Portable left wrist, 4 views, 03/19/2018: HISTORY: Postreduction evaluation Comparison is made to yesterday's study. A radiopaque cast is now in place. The degree of displacement of the distal radial fracture fragment has improved, although mild volar displacement persists. No new bony abnormality is detected. IMPRESSION: Improved alignment of the distal radial fracture. Electronically signed by: León Shipman MD (03/19/2018 8:41 AM) [facility]
== END 2018-03-19 03:02 | disposition home or self-care (01) ==
LOC: ER 22:09
DX: S52.122A Displaced fracture of head of left radius, initial encounter for closed fracture (principal); S83.91XA Sprain of unspecified site of right knee, initial encounter; Z86.2 Personal history of diseases of the blood and blood-forming organs and certain disorders involving the immune mechanism; F41.9 Anxiety disorder, unspecified; F32.9 Major depressive disorder, single episode, unspecified; W17.89XA Other fall from one level to another, initial encounter; Y93.89 Activity, other specified; Y99.8 Other external cause status; Y92.89 Other specified places as the place of occurrence of the external cause
CPT/HCPCS: 25605; 73110; 73564; 96372; 96374; 99285; J2270; J3010; 99152